=== PATIENT | male | born 1990 | race Caucasian/White ===

== ENCOUNTER 2021-04-08 04:55 | Emergency (ER) | payer OTHER ==
[~2021-04-08] VITALS: Ht 180.3 cm; Wt 86.2 kg
[2021-04-08 04:55] VITALS: BP 125/90
--- NOTE | 2021-04-08 04:55 | NUR ---
TO [facility]
--- NOTE | 2021-04-08 05:12 | NUR ---
Dr. Hernandez examining patient.
[2021-04-08] MEDS ORDERED: ACET-8386 PO (05:22)
[2021-04-08 05:26] VITALS: BP 120/87
== END 2021-04-08 05:27 | disposition home or self-care (01) ==
LOC: MED 04:55
DX: S02.5XXA Fracture of tooth (traumatic), initial encounter for closed fracture (principal); K02.9 Dental caries, unspecified; X58.XXXA Exposure to other specified factors, initial encounter; Y93.89 Activity, other specified; Y92.89 Other specified places as the place of occurrence of the external cause; Y99.8 Other external cause status
CPT/HCPCS: 99283